=== PATIENT | female | born 1955 | race Caucasian/White ===

== ENCOUNTER → 2017-05-10 10:37 | Outpatient (CLI) | payer MEDICARE ==
[2016-03-22 12:53] VITALS: BMI 46.4
[~2017-05-10 10:37] MED LIST: ADVAIR 250/501 DISK INH; ADVAIR 500/501 DISK INH; ASPIRIN81 MG PO; BACTRIM DS TABL1 TAB PO; BAYER CHEWABLE81 MG PO; BYSTOLIC10 MG PO; COMBIVENT RESPIM4 GM INH; DALIRESP500 MCG PO; FLUTICASONE PRO16 GM NASAL; GLUCOPHAGE1000 MG PO; GLUCOTROL 5 MG T5 MG PO; KEFLEX500 MG PO; LISINOPRIL5 MG PO; LOPRESSOR25 MG PO; MIRALAX17 GM PO; OMNICEF300 MG PO; PEPCID40 MG PO; PLAVIX75 MG PO; PREDNISONE20 MG PO; REQUIP3 MG PO; SALINE NASAL SP45 ML NS; SPIRIVA18 MCG INH; STERAPRED 5MG 125 MG PO; STERAPRED DS 1210 MG PO; TENORMIN25 MG PO; ULTRAM50 MG PO; VICKS SINEX15 M1 NASAL; XARELTO15 MG PO; ZITHROMAX TRI-500 MG PO
== END | disposition home or self-care (01) ==
LOC: D.CT 10:37
DX: R91.1 Solitary pulmonary nodule (principal)